=== PATIENT | male | born 1970 | race Hispanic/Latino ===

== ENCOUNTER 2017-06-27 10:26 | Emergency (ER) | payer OTHER ==
[~2017-06-27] VITALS: Ht 185.4 cm; Wt 108.9 kg
--- NOTE | 2017-06-27 14:41 | ED NECK/BACK PAIN COMPLAINT ---
History of Present Illness General Chief Complaint: Low Back Pain/Injury Stated Complaint: LBP Source: patient Exam Limitations: no limitations Vital Signs & Intake/Output Vital Signs & Intake/Output Vital Signs Date Time Temp Pulse Resp B/P B/P Pulse O2 O2 Flow FiO2 Mean Ox Delivery Rate 06/27 1447 97.6 69 18 122/77 98 06/27 1440 99 Room Air 06/27 1038 97.1 100 18 158/80 98 Room Air Allergies Coded Allergies: No Known Allergies (06/27/17) Reconcile Medications Cyclobenzaprine HCl 10 MG TABLET 1 TAB PO Q8P PAIN OR SPASM Methylprednisolone. (Medrol) 4 MG TAB.DS.PK 1 DP PO AD back pain 6 on day 1 then reduce by one tablet daily until gone Oxycodone HCl/Acetaminophen (Percocet 5-325 MG Tablet) 5 MG-325 MG TABLET 1-2 TAB PO Q6P PRN PAIN Triage Note: PT BIBA. 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 STATES HE HAS A HISTORY OF A HERNIATED DISK. PAIN IS 8/10 AT REST. Triage Nurses Notes Reviewed? yes HPI: pt was at work ant turned and had a sudden onset of right low back pain radiating to the bottom of his riht foot. pain is constant and increases with movement. there is no weakness or numbness. n o incontinence. pain is achy and is 10 out of 10. Past History Travel History Traveled to [place] past 21 day No Medical History Any Pertinent Medical History? see below for history Neurological: NONE EENT: NONE Cardiovascular: NONE Respiratory: NONE Gastrointestinal: NONE Hepatic: NONE Renal: NONE Musculoskeletal: chronic back pain Psychiatric: NONE Endocrine: NONE Blood Disorders: NONE Cancer(s): NONE SHIPPING HAND/Reproductive: NONE Surgical History Surgical History: non-contributory Psychosocial History What is your primary language Wolof Tobacco Use: Current Daily Use Daily Tobacco Use Amount/Type: => 5 Cigarettes daily ETOH Use: denies use Illicit Drug Use: denies illicit drug use Family History Hx Contributory? No Review of Systems Review of Systems Constitutional: Reports: no symptoms. Eyes: Reports: no symptoms. Ears, Nose, Throat, Mouth: Reports: no symptoms. Respiratory: Reports: no symptoms. Cardiovascular: Reports: no symptoms. Gastrointestinal/Abdominal: Reports: no symptoms. Musculoskeletal: Reports: see HPI, back pain. Skin: Reports: no symptoms. Neurological/Psychological: Reports: no symptoms. All Other Systems: Reviewed and Negative Physical Exam Physical Exam General Appearance: well developed/nourished, alert, awake, moderate distress Head: atraumatic, normal appearance Eyes: Bilateral: PERRL, EOMI. Ears, Nose, Throat, Mouth: hearing grossly normal, moist mucous membrane Neck: normal inspection, supple, full range of motion, no midline tenderness Respiratory: normal breath sounds, chest non-tender, no respiratory distress, lungs clear Cardiovascular: regular rate/rhythm, normal peripheral pulses Gastrointestinal: normal bowel sounds, soft, non-tender Back: normal inspection, muscle spasm, no vertebral tenderness Extremities: normal range of motion Straight Leg Raising: Right: Negative. Left: Negative. Neurologic/Psych: awake, alert, oriented x 3, normal mood/affect Skin: intact, normal color, warm/dry Core Measures CVA/TIA Diagnosis: No Progress Differential Diagnosis: herniated disc, myofascial strain, T/L spine injury Plan of Care: Current Medications Sig/Rupali Start time Last Medication Dose Stop Time Status Admin Cyclobenzaprine HCl 10 MG ONCE ONE 06/27 1445 UNVr (Flexeril 10MG Tab) 06/27 144 Ketorolac 60 MG ONCE ONE 06/27 1445 UNVr Tromethamine 06/27 1446 (Toradol) Prednisone 60 MG ONCE ONE 06/27 1445 UNVr 06/27 1446 Diagnostic Imaging: Viewed by Me: CT Scan. Discussed w/RAD: CT Scan. Radiology Impression: PATIENT: DOMENICO DONOHUE PRESENT AGE : 47 PATIENT ACCOUNT NO: [id number] : 71 LOCATION: [facility] ORDERING PHYSICIAN: Jame Anderson MD SERVICE DATE: 06/27/17 EXAM TYPE: CAT - CT LUMB SPINE WO IV CONTRAST EXAMINATION: CT LUMBAR SPINE WITHOUT CONTRAST CLINICAL INFORMATION: Herniated disc. Severe low back pain. COMPARISON: No relevant prior imaging. TECHNIQUE: Rn Hemo Dialysis images were obtained. CT acquisition of the lumbar spine was performed without intravenous administration of contrast. Data was reformatted into multiplanar images at the acquisition workstation. DLP : 887.71 mGy-cm FINDINGS: There is anatomic alignment and position of the vertebral bodies and posterior elements of the lumbar spine in the sagittal dimension. Vertebral body heights are preserved. Mild disc osteophyte spurring is visualized at multiple levels. Intervertebral disc spaces are maintained. At T12-L1 the annular contour is normal. No canal or neuroforaminal compromise. At L1-L2 is annular contour is normal. No canal or neuroforaminal compromise. At L2 -L3 there is a bulging disc. No canal or neuroforaminal compromise. At L3-L4 there is a bulging disc. Bilateral facet degenerative change. The canal is not well assessed. There appears to be at least mild canal stenosis and symmetric subarticular zone narrowing. Partial effacement of perineural fat without overt compression of the foraminal segments of the L3 nerve roots. At L4-L5 there is a right foraminal to far lateral protrusion superimposed upon a diffusely bulging disc causing moderate mass effect on the foraminal/extraforaminal segment of the right L4 nerve root. The canal is not well assessed. There appears to be at least mild canal stenosis and symmetric subarticular zone narrowing. At L5-S1 there is a diffusely bulging disc. Bilateral facet degenerative change. No canal stenosis. Symmetric subarticular zone narrowing causes abutment and possible compression of the traversing S1 nerve roots. Mild compression of the foraminal segments of both L5 nerve roots, greater on the right. Limited visualization of the retroperitoneal structures reveals no abnormal finding. Psoas and paraspinal muscle groups are symmetric. IMPRESSION: There is multilevel degenerative spondylosis involving the mid to lower lumbar spine. Although the canal is not well assessed there appears to be mild stenosis at the levels of L3-L4 and L4- L5. There is a right foraminal to far lateral protrusion at L4-L5 that causes moderate compression of the foraminal/extraforaminal segment of the right L4 nerve root. Mild compression of the foraminal segments of both L5 nerve roots primarily related to a diffusely bulging disc at L5-S1. DICTATED BY: Gallo Mclaughlin MD DATE/TIME DICTATED:06/27/171625 EVENTS MANAGER:PB DATE/ TIME TRANSCRIBED:06/27/171625 CONFIDENTIAL, DO NOT COPY WITHOUT APPROPRIATE AUTHORIZATION. <Electronically signed in Other Vendor System> SIGNED BY: Gallo Mclaughlin MD 06/27/17 3436 Comments: pain decreased after meds. atrtenpted to walk pt but severe pain with movement. will give percocet and get a ct scan. pain decreased after percocet. ct results discussed with pt. he will follow up with [facility]. Departure Departure Disposition: HOME OR SELF CARE Condition: Stable Clinical Impression Primary Impression: Back pain Referrals: Unknown (PCP/Family) Additional Instructions: use moist heat take meds as \prescribed return if symptoms worsen or for any concerns Departure Forms: Customer Survey General Discharge Information Industrial Accident Report Prescriptions: Current Visit Scripts Methylprednisolone. (Medrol) 1 DP PO AD #1 DP 6 on day 1 then reduce by one tablet daily until gone Cyclobenzaprine HCl 1 TAB PO Q8P #20 TAB Oxycodone HCl/Acetaminophen (Percocet 5-325 MG Tablet) 1-2 TAB PO Q6P PRN PAIN #20 TAB
--- NOTE | 2017-06-27 16:36 | CT SCAN REPORT ---
EXAMINATION: CT LUMBAR SPINE WITHOUT CONTRAST CLINICAL INFORMATION: Herniated disc. Severe low back pain. COMPARISON: No relevant prior imaging. TECHNIQUE: Prospecting Observer images were obtained. CT acquisition of the lumbar spine was performed without intravenous administration of contrast. Data was reformatted into multiplanar images at the acquisition workstation. DLP: 887.71 mGy-cm FINDINGS: There is anatomic alignment and position of the vertebral bodies and posterior elements of the lumbar spine in the sagittal dimension. Vertebral body heights are preserved. Mild disc osteophyte spurring is visualized at multiple levels. Intervertebral disc spaces are maintained. At T12-L1 the annular contour is normal. No canal or neuroforaminal compromise. At L1-L2 is annular contour is normal. No canal or neuroforaminal compromise. At L2-L3 there is a bulging disc. No canal or neuroforaminal compromise. At L3-L4 there is a bulging disc. Bilateral facet degenerative change. The canal is not well assessed. There appears to be at least mild canal stenosis and symmetric subarticular zone narrowing. Partial effacement of perineural fat without overt compression of the foraminal segments of the L3 nerve roots. At L4-L5 there is a right foraminal to far lateral protrusion superimposed upon a diffusely bulging disc causing moderate mass effect on the foraminal/extraforaminal segment of the right L4 nerve root. The canal is not well assessed. There appears to be at least mild canal stenosis and symmetric subarticular zone narrowing. At L5-S1 there is a diffusely bulging disc. Bilateral facet degenerative change. No canal stenosis. Symmetric subarticular zone narrowing causes abutment and possible compression of the traversing S1 nerve roots. Mild compression of the foraminal segments of both L5 nerve roots, greater on the right. Limited visualization of the retroperitoneal structures reveals no abnormal finding. Psoas and paraspinal muscle groups are symmetric. IMPRESSION: There is multilevel degenerative spondylosis involving the mid to lower lumbar spine. Although the canal is not well assessed there appears to be mild stenosis at the levels of L3-L4 and L4-L5. There is a right foraminal to far lateral protrusion at L4-L5 that causes moderate compression of the foraminal/extraforaminal segment of the right L4 nerve root. Mild compression of the foraminal segments of both L5 nerve roots primarily related to a diffusely bulging disc at L5-S1.
[2017-06-27] MEDS ORDERED: MEDROL4 M2 PO (17:13)
[2017-06-27] MEDS ORDERED: CYCLOBENZAPRINE10 M1 PO (17:13)
[2017-06-27] MEDS ORDERED: PERCOCET 5-3251 EACH PO (17:13)
[2017-06-27 17:22] VITALS: BP 120/70
== END 2017-06-27 17:22 ==
LOC: ERH 10:26
DX: M54.5 Low back pain (principal); X50.9XXA Other and unspecified overexertion or strenuous movements or postures, initial encounter; Y93.9 Activity, unspecified; Y92.9 Unspecified place or not applicable
CPT/HCPCS: 96372; J1885